=== PATIENT | female | born 2000 | race Caucasian/White ===

== ENCOUNTER 2023-11-18 15:31 | Emergency (ER) | payer BC, SELFPAY ==
[2023-11-18 15:33] VITALS: BP 91/72
--- NOTE | 2023-11-18 18:08 | ED.GENMED ---
History of Present Illness
General
Chief Complaint: Urinary Symptoms
Source: patient
Time Seen by Provider: 11/18/23 18:01
Travel History
Have you had any contact with someone who has COVID-19?: No
Do you have any symptoms of coronavirus? Fever > 100 degrees, chills, cough, shortness of breath, sore throat, loss of taste or smell, muscle aches, or headache?: No
History of Present Illness
History of Present Illness:
23-year-old female with past medical history of anxiety, depression, panic disorder presenting to the emergency department for evaluation after she was diagnosed with a urinary tract infection at urgent care earlier today, prescribed Macrobid, but
approximately 30 minutes after taking the Macrobid patient started to have persistent nausea and vomiting, 3 panic attacks since arrival to the emergency and diffuse generalized abdominal pain. Patient states that she has never been on Macrobid
previously. Notes a history of urinary tract infections in the past. States today started with dysuria and urinary frequency. Denies any fevers, chills, rigors, bowel changes, back or flank pain, hematuria, vaginal bleeding or discharge. Of
note, patient has a history of cannabinoid hyperemesis but states has not used marijuana in about 3 weeks. Last menstrual period earlier this month. Patient states she has no concern for .
Past History
Past History
ED Past Medical History: Psychiatric
ED Past Surgical History: None
Social History
Tobacco: Non-smoker
Alcohol: None
Drug: Marijuana
Personal: Single
Living: with family
Review of Systems
Review of Systems
All Other Systems: ROS reviewed and negative except as documented in HPI and ROS
Phy Exam
Physical Exam
Physical Exam:
GENERAL: Alert , retching loudly but minimal vomitus noted
EYE: Clear conjunctiva
NECK: Supple
ENT: o/p clr, mmm.
CARDIAC: Regular rate and rhythm .
LUNGS: Clear breath sounds bilaterally, no acute respiratory distress, no wheezes/rales/rhonchi
ABDOMEN: Soft, without focal tenderness, no r/g, no cvat
NEUROLOGICAL: Alert and oriented
SKIN: Warm and dry, skin intact.
MUSCULOSKELETAL: well perfused.
PSYCH: Normal and appropriate interaction.
Scores
Heart Failure Risk
Heart Failure Risk Score: Not Applicable
Heart Score for Chest Pain Patients
STEMI patient?: Not applicable
Withdrawal Assessment of Alcohol
Withdrawal Assessment Completed?: Not applicable
Course
Orders/Labs/Results
Orders:
Orders
11/18/23 18:07
0.9% Sodium Chloride 1000 ml [Nss] 1,000 ml IV BOLUS
Diphenhydramine [Benadryl] 25 mg IV NOW STA
Ondansetron Injectable [Zofran] 4 mg IV NOW STA
Test Result ONCE
11/18/23 18:10
Complete Blood Count/With Diff Urgent
Comprehensive Metabolic Panel Urgent
HCG, Serum Qualitative Screen Urgent
11/18/23 19:11
Haloperidol Lactate [Haldol] 2 mg IV NOW STA
11/18/23 19:19
Electrocardiogram (*1) Urgent
Reason for Study: QTc Monitoring
Abnormal Lab Results
11/18/23
18:10
WBC 15.4 H 10^3/uL
(4.8-10.8)
MCV 78.9 L fL
(81.0-99.0)
MPV 10.9 H fL
(7.4-10.4)
Abs Immat Gran (auto) 0.1 H 10^3/uL
(0-0.05)
Absolute Neuts (auto) 13.5 H 10^3/uL
(1.4-6.5)
Absolute Lymphs (auto) 1.1 L 10^3/uL
(1.2-3.4)
Neutrophils % 87.7 H %
(42.2-75.2)
Lymphocytes % 6.8 L %
(20.5-51.1)
Chloride 109 H mmol/L
(98-107)
Carbon Dioxide 17 L mmol/L
(22-30)
BUN 19 H mg/dl
(7-17)
Glucose 125 H mg/dl
(70-99)
11/18/23 18:10
11/18/23 18:10
Vital Signs
Initial and Last Documented VS:
Initial Vital Signs
Temp Pulse Resp BP Pulse Ox
97.9 F 105 18 91/72 99
11/18/23 15:33 11/18/23 15:33 11/18/23 15:33 11/18/23 15:33 11/18/23 15:33
Last Documented Vital Signs
Temp Pulse Resp BP Pulse Ox
97.9 F 116 18 117/75 98
11/18/23 15:33 11/18/23 20:51 11/18/23 20:51 11/18/23 20:51 11/18/23 20:51
MDM/Problems Addressed
Differential Diagnosis Includes:
Cannabinoid hyperemesis, cyclical vomiting syndrome, gastroparesis, anxiety, pyelonephritis considered given recent diagnosis of UTI this morning
MDM/Problems Addressed:
23-year-old female present emergency department for nausea and vomiting since taking Macrobid earlier today after she was diagnosed with a urinary tract infection at local urgent care. Urinalysis reviewed from the urgent care which showed
microscopic hematuria and small leukocytes as well as increased WBCs within the urine. Pyelonephritis certainly considered given the diagnosis of urinary tract infection but based off physical exam findings I am less suspicious for this diagnosis.
I do suspect either cannabinoid hyperemesis/cyclical vomiting/gastroparesis/anxiety to be the most likely cause for symptoms. Will treat with fluids, Zofran and Benadryl. Reassessment following
Chronic conditions affecting care: Other (Cannabinoid hyperemesis)
*Pulse Oximetry
Patient hypoxic: no
*Critical Care Note
Total Time (30-74mins, 75-104mins- exclusive of procedures): Not Applicable
Data Reviewed
Review of Other/Old Records Reveals: Labs and Records
Source: patient and records
Comment
Comment:
7:18 PM: Patient had improved symptoms following meds but started to have retching again. 2 mg Haldol IV ordered.
Patient Management
Escalation/DeEscalation of care consider admission/obs:
Following Haldol patient sleeping and resting comfortably. upon awakening she was able to tolerate ice chips and feels significantly better and is requesting to be discharged home She will follow-up with primary care provider. Otherwise stable
for discharge home. Prescription for Zofran sent to pharmacy. Will also change patient's antibiotic from Macrobid to Bactrim as she states she has tolerated this without difficulty in the past although is requesting a prescription for a yeast
infection just in case.
ED Attending Note
-
Portions of this chart may have been created with voice recognition software.� Occasional wrong word or��sound alike� substitutions may have occurred due to the inherent limitations of voice recognition software.
Discharge Plan
Departure
Patient Disposition: Home (Routine Discharge)
Date of Disposition: 11/18/23
Time of Disposition: 21:19
Patient with high blood pressure during this ER visit?: No
Discharge Problem:
Nausea and vomiting
Instructions: Nausea and Vomiting, Adult (DC)
Prescriptions:
New
sulfamethoxazole-trimethoprim [Bactrim] 400-80 mg tablet
1 tab PO BID 7 Days Qty: 14 0RF
ondansetron 4 mg tablet,disintegrating
4 mg PO TIDPRN PRN (Reason: nausea/vomiting) Qty: 8 0RF
fluconazole 150 mg tablet
150 mg PO ONCE Qty: 1 0RF
No Action
metoclopramide HCl [Reglan] 10 mg tablet
10 mg PO Q6H PRN (Reason: nausea and vomiting) Qty: 10 0RF
Referrals:
Tenthoff,Deysi Hooks MD [Family Provider] -
Stand Alone Forms: Return to Work
Interventions
Interventions:
*Risk Screen - Suicide Last Done: 11/18/23 18:00
*General Assessment Last Done: 11/18/23 18:00
*Neglect/Abuse Screening Last Done: 11/18/23 18:00
ED- Fall Risk Assessment Last Done: 11/18/23 18:04
*ED COVID-19 Vaccine History Last Done: 11/18/23 18:00
*Nursing Disposition Last Done: 11/18/23 21:31
ED-Female Genitourinary Assessment Last Done: 11/18/23 18:02
Discharge Date and Time
Discharge Date/Time: 11/18/23 21:32
Print Language: BRITISH
[2023-11-18] MEDS: ZOFRAN 4 MG IV (18:14)
[2023-11-18] MEDS: BENADRYL 25 MG IV (18:14)
[2023-11-18] MEDS: NSS 1000 IV (18:14)
[2023-11-18 18:16] LABS: % Basophils 0.1 % (0-2); % Eosinophils 0.7 % (0-6); % Immature Granulocytes 0.5 % (0-0.5); % Lymphocytes 6.8 % (20.5-51.1); % Monocytes 4.2 % (1.7-9.3); % Neutrophils 87.7 % (42.2-75.2); Absolute Eosinophils 0.1 10^3/uL (0-0.7); Absolute Immature Granulocytes 0.1 10^3/uL (0-0.05); Absolute Lymphocytes 1.1 10^3/uL (1.2-3.4); Absolute Monocytes 0.6 10^3/uL (0.1-0.6); Absolute Neutrophils 13.5 10^3/uL (1.4-6.5); Hemoglobin 14.5 g/dL (12.0-16.0); Mean Corp Hgb Conc. 34.5 g/dL (33.0-37.0); Mean Corpuscular Hgb 27.3 pg (27.0-31.0); Mean Corpuscular Volume 78.9 fL (81.0-99.0); Mean Platelet Volume 10.9 fL (7.4-10.4); Nucleated Red Blood Cells % 0 %; Platelet Count 334 10^3/uL (130-400); Red Blood Cell Count 5.32 10^6/uL (4.20-5.40); Red Cell Dist. Width 13.3 % (11.5-14.5); White Blood Cell Count 15.4 10^3/uL (4.8-10.8)
[2023-11-18 18:27] LABS: HCG, Serum Qualitative Screen Negative
[2023-11-18 18:37] LABS: ALT (SGPT) 31 U/L (0-35); AST (SGOT) 26 U/L (14-36); Albumin 4.8 g/dl (3.5-5.0); Alkaline Phosphatase 70 U/L (38-126); Blood Urea Nitrogen 19 mg/dl (7-17); Calcium 10.1 mg/dl (8.4-10.2); Carbon Dioxide 17 mmol/L (22-30); Chloride 109 mmol/L (98-107); Glucose 125 mg/dl (70-99); Potassium 3.6 mmol/L (3.5-5.1); Sodium 139 mmol/L (135-145); Total Protein 7.7 g/dl (6.3-8.2); eGFR > 60.00
[2023-11-18] MEDS: HALDOL 2 MG IV (19:18)
[2023-11-18 20:51] VITALS: BP 117/75
== END 2023-11-18 21:32 | disposition home or self-care (01) ==
LOC: EMR 15:31
PROVIDERS: Physician Assistant Medical; EMERGENCY PHYSICIAN Emergency Medicine; FAMILY PHYSICIAN Family Medicine
DX: R11.2 Nausea with vomiting, unspecified (principal); R10.84 Generalized abdominal pain; N39.0 Urinary tract infection, site not specified; F41.0 Panic disorder [episodic paroxysmal anxiety]; F41.9 Anxiety disorder, unspecified; F32.A Depression, unspecified; Z87.440 Personal history of urinary (tract) infections; Z88.6 Allergy status to analgesic agent; Z88.1 Allergy status to other antibiotic agents
CPT/HCPCS: 99284; 96374; 96375 ×2; 96361; 80053; 84703; 85025